=== PATIENT | male | born 1995 | race Two or more races ===

== ENCOUNTER 2017-08-18 00:20 | Emergency (ER) | payer SELFPAY ==
[2017-08-18] MEDS: Sodium Chloride 0.9% 1,000 ML IV ONE (00:45)
[2017-08-18] MEDS: Ondansetron 4 MG/2 ML SDV IVPUSH ONE (00:45)
[2017-08-18 01:13] VITALS: BP 146/96
--- NOTE | 2017-08-18 01:16 | EDM.PDOC ---
ED HPI GENERAL MEDICAL PROBLEM - General Chief Complaint: Abdominal Pain Stated Complaint: abd pain Time Seen by Provider: 08/18/17 01:06 Source of Information: Reports: Patient History Limitations: Reports: No Limitations - History of Present Illness INITIAL COMMENTS - FREE TEXT/NARRATIVE: 22 YO HM presents to ER complaining epigastric abdominal pain which radiates to left upper quadrant which began approximately 2 hours ago. Pt reports he was "chugging" beer and vodka when the pain began. Pt reports he felt nauseated and almost vomited after initial symptoms began. Pt reports pain is a pressure without radiation to back or chest. Pt reports consuming a large amount of alcohol last night. Pt denies any previous episodes of this pain. Pt denies taking any medication at this time. Pt reports pain is still present but has improved since coming to ER. Pt denies any fever/chills or chest pain. Onset: Today, Sudden Onset Date: 08/17/17 Onset Time: 23:00 Duration: Improving Location: Reports: Abdomen. Denies: Neck, Chest, Back Quality: Reports: Pressure Severity: Moderate Improves with: Reports: None Worsens with: Reports: Other (alcohol consumption) Associated Symptoms: Reports: Nausea/Vomiting. Denies: Chest Pain, Fever/Chills , Shortness of Breath Left Upper Abdomen Pain Score (Numeric/FACES): 4 - Related Data Allergies Allergy/AdvReac Type Severity Reaction Status Date / Time No Known Drug Allergies Allergy none Verified 08/18/17 01:13 Home Meds: Home Meds Famotidine [Pepcid] 20 mg PO BID #30 tab 08/18/17 [Rx] Ondansetron [Zofran ODT] 4 mg PO Q6H PRN #10 tab.dis 08/18/17 [Rx] ED ROS GENERAL - Review of Systems Review Of Systems: See Below Constitutional: Reports: No Symptoms HEENT: Reports: No Symptoms Respiratory: Reports: No Symptoms Cardiovascular: Reports: No Symptoms Endocrine: Reports: No Symptoms GI/Abdominal: Reports: Abdominal Pain, Nausea. Denies: Black Stool, Bloody Stool, Hematemesis, Hematochezia, Vomiting : Reports: No Symptoms. Denies: Flank Pain Musculoskeletal: Reports: No Symptoms Skin: Reports: No Symptoms Neurological: Reports: No Symptoms Psychiatric: Reports: No Symptoms Hematologic/Lymphatic: Reports: No Symptoms Immunologic: Reports: No Symptoms ED EXAM, GI/ABD - Physical Exam Exam: See Below Exam Limited By: No Limitations General Appearance: Alert, WD/WN, No Apparent Distress Throat/Mouth: Normal Inspection, Normal Lips, Normal Teeth, Normal Gums, Normal Oropharynx, Normal Voice, No Airway Compromise Head: Atraumatic, Normocephalic Neck: Normal Inspection, Supple, Non-Tender, Full Range of Motion Respiratory/Chest: No Respiratory Distress, Lungs Clear, Normal Breath Sounds, No Accessory Muscle Use, Chest Non-Tender Cardiovascular: Normal Peripheral Pulses, Regular Rate, Rhythm, No Edema, No Gallop, No JVD, No Murmur, No Rub GI/Abdominal Exam: Normal Bowel Sounds, Soft, No Organomegaly, No Distention, No Abnormal Bruit, No Mass, Pelvis Stable, Tender (epigastric). No: Distended, Guarding, Rigid, Rebound Back Exam: Normal Inspection, Full Range of Motion, NT Extremities: Normal Inspection, Normal Range of Motion, Non-Tender, Normal Capillary Refill, No Pedal Edema Neurological: Alert, Oriented, CN II-XII Intact, Normal Cognition, Normal Gait, Normal Reflexes, No Motor/Sensory Deficits Psychiatric: Normal Affect, Normal Mood Skin Exam: Warm, Dry, Intact, Normal Color, No Rash Lymphatic: No Adenopathy Course - Vital Signs Last Recorded V/S: Last Vital Signs Temp 36.7 C 08/18/17 01:08 Pulse 113 H 08/18/17 01:08 Resp 16 08/18/17 01:08 BP 146/96 H 08/18/17 01:08 Pulse Ox 98 08/18/17 01:08 - Orders/Labs/Meds Orders: Active Orders 24 hr Category Date Time Status UA W/MICROSCOPIC [URIN] Stat Lab 08/18/17 00:37 Ordered Labs: Laboratory Tests 08/18/17 08/18/17 08/18/17 Range/Units 00:45 00:45 00:45 WBC 10.1 H (5.0-10.0) 10^3/uL RBC 5.08 (4.50-6.00) 10^6/uL Hgb 16.3 (13.0-17.0) g/dL Hct 49.0 (40.0-52.0) % MCV 96.5 H (82.0-92.0) fL MCH 32.0 H (27.0-31.0) pg MCHC 33.2 (32.0-36.0) g/dL RDW 13.7 (11.5-14.5) % Plt Count 250 (150-300) 10^3/uL MPV 8.9 (7.4-10.4) fL Neut % (Auto) 68.1 (50.0-70.0) % Lymph % (Auto) 23.5 (20.0-40.0) % Dunn % (Auto) 7.0 (2.0-8.0) % Eos % (Auto) 0.6 L (1.0-3.0) % Baso % (Auto) 0.8 (0.0-1.0) % Neut # (Auto) 6.8 (2.5-7.0) 10^3/uL Lymph # (Auto) 2.4 (1.0-4.0) 10^3/uL Dunn # (Auto) 0.7 (0.1-0.8) 10^3/uL Eos # (Auto) 0.1 (0.1-0.3) 10^3/uL Baso # (Auto) 0.1 (0.0-0.1) 10^3/uL Sodium 141 (136-145) mmol/L Potassium 3.5 (3.3-5.3) mmol/L Chloride 102 (98-115) mmol/L Carbon Dioxide 24.2 (21.0-32.0) mmol/L BUN 15 (6-25) mg/dL Creatinine 0.75 (0.51-1.17) mg/dL Est Cr Clr Drug Dosing 181.52 mL/min Estimated GFR (MDRD) > 60 mL/min Glucose 107 (70-110) mg/dL Calcium 9.3 (8.7-10.3) mg/dL Total Bilirubin 0.6 (0.2-1.0) mg/dL AST 23 (15-37) U/L ALT 33 (12-78) U/L Alkaline Phosphatase 71 (46-116) IU/L Total Protein 8.0 (6.4-8.2) g/dL Albumin 4.34 (3.00-4.80) g/dL Lipase 71 L (73-393) U/L Meds: Medications Discontinued Medications Generic Name Dose Route Start Last Admin Trade Name Freq PRN Reason Stop Dose Admin Sodium Chloride 1,000 mls @ 999 mls/hr 08/18/17 00:36 08/18/17 00:45 Normal Saline IV 08/18/17 01:36 999 mls/hr .BOLUS ONE Administration Ondansetron HCl 4 mg 08/18/17 00:37 08/18/17 00:45 Zofran IVPUSH 08/18/17 00:38 4 mg ONETIME ONE Administration Departure - Departure Time of Disposition: 01:49 Disposition: Home, Self-Care 01 Condition: Good Clinical Impression: Abdominal pain Qualifiers: Abdominal location: epigastric Qualified Code(s): R10.13 - Epigastric pain Gastritis Qualifiers: Gastritis type: alcoholic Chronicity: acute Gastritis bleeding: without bleeding Qualified Code(s): K29.20 - Alcoholic gastritis without bleeding - Discharge Information Prescriptions: Famotidine [Pepcid] 20 mg PO BID #30 tab Ondansetron [Zofran ODT] 4 mg PO Q6H PRN #10 tab.dis PRN Reason: Nausea Instructions: Abdominal Pain, Adult, [id number], Gastritis, Adult, Easy-to- Read Forms: ED Department Discharge - My Orders Last 24 Hours: My Active Orders 08/18/17 00:37 UA W/MICROSCOPIC [URIN] Stat - Assessment/Plan Last 24 Hours: My Active Orders 08/18/17 00:37 UA W/MICROSCOPIC [URIN] Stat Assessment:: 1. abdominal pain- possibly gastritis vs early pancreatitis Plan: 1. abdominal pain- possibly gastritis vs early pancreatitis 2. discharge home 3. clear liquid diet 4. pepcid 20mg PO BID 5. zofran 4mg SL Q6 PRN 6. no alcohol 7. follow up with PCP for further evaluation and treatment 8. return to ER for worsening symptoms
[2017-08-18 01:41] LABS: CHLORIDE,CL 102 mmol/L (98-115); SODIUM,NA 141 mmol/L (136-145)
[2017-08-18] MEDS: Famotidine 20 MG Tab PO ONE (01:56)
== END 2017-08-18 02:00 | disposition home or self-care (01) ==
LOC: KA.ED 00:20
DX: K29.20 Alcoholic gastritis without bleeding (principal)
CPT/HCPCS: 80053; 81001; 83690; 85025; 96361; 96374; 96375; 99284; A9270-GY; J2405; J7030

== ENCOUNTER 2017-12-13 08:49 | Emergency (ER) | payer OTHER ==
--- NOTE | 2017-12-13 10:38 | EDM.PDOC ---
ED HPI GENERAL MEDICAL PROBLEM - General Chief Complaint: Upper Extremity Injury/Pain Stated Complaint: RIGHT MIDDLE FINGER INJURY Time Seen by Provider: 12/13/17 09:38 Source of Information: Reports: Patient History Limitations: Reports: No Limitations - History of Present Illness INITIAL COMMENTS - FREE TEXT/NARRATIVE: Patient presents with injury to right long finger that occurred at work when he caught it between a roller and chain. He says it pulled his finger in part way then slipped and let his finger out but pulled the tip loose from the finger nail. He denies any other injuries or medical problems. - Related Data Allergies Allergy/AdvReac Type Severity Reaction Status Date / Time No Known Drug Allergies Allergy none Verified 12/13/17 09:30 Home Meds: Home Meds . [No Known Home Meds] 12/13/17 [History] Past Medical History - Past Health History Medical/Surgical History: Denies Medical/Surgical History Gastrointestinal History: Reports: GERD Psychiatric History: Reports: ADD - Infectious Disease History Infectious Disease History: Reports: Chicken Pox - Past Surgical History Musculoskeletal Surgical History: Reports: Other (See Below) Other Musculoskeletal Surgeries/Procedures:: joint aches Social & Family History - Tobacco Use Smoking Status *Q: Current Every Day Smoker Years of Tobacco use: 5 Packs/Tins Daily: 1 - Caffeine Use Caffeine Use: Reports: Coffee, Energy Drinks, Soda, Tea Other Caffeine Use: regular - Recreational Drug Use Recreational Drug Use: Yes Recreational Drug Type: Reports: Marijuana/Hashish Recreational Drug Use Frequency: Weekly Review of Systems - Review of Systems Review Of Systems: See Below Constitutional: Reports: No Symptoms. Denies: Fever Eyes: Reports: No Symptoms Ears: Reports: No Symptoms Nose: Reports: No Symptoms Mouth/Throat: Reports: No Symptoms Respiratory: Reports: No Symptoms Cardiovascular: Reports: No Symptoms. Denies: Lightheadedness, Palpitations GI/Abdominal: Reports: No Symptoms Genitourinary: Reports: No Symptoms Musculoskeletal: Reports: Hand Pain. Denies: Neck Pain, Shoulder Pain, Arm Pain , Back Pain, Leg Pain Skin: Reports: Wound. Denies: Cyanosis, Jaundice, Mottled, Pallor, Diaphoresis Neurological: Reports: No Symptoms. Denies: Confusion, Dizziness, Headache, Seizure, Syncope, Difficulty Walking, Weakness Psychiatric: Reports: No Symptoms. Denies: Confusion ED EXAM, GENERAL - Physical Exam Exam: See Below Exam Limited By: No Limitations General Appearance: Alert, WD/WN, No Apparent Distress Eye Exam: Bilateral Eye: EOMI, Normal Inspection, PERRL Ears: Normal External Exam, Hearing Grossly Normal Nose: Normal Inspection, No Blood Throat/Mouth: Normal Inspection, Normal Lips, Normal Voice, No Airway Compromise Head: Atraumatic, Normocephalic Neck: Normal Inspection, Full Range of Motion Respiratory/Chest: No Respiratory Distress, Lungs Clear, Normal Breath Sounds, No Accessory Muscle Use Cardiovascular: Regular Rate, Rhythm, No Edema, No Gallop, No Murmur Back Exam: Full Range of Motion Extremities: Other (Exam of right long finger reveals full pain-free ROM of IP joints as well as remainder of hand. The distal tip of right long finger has no visible lacerations but appears to have torn loose from either the nail or nailbed. This is quite stable now and too painful to pull down to confirm depth of damage. The tip has full sensation and circulation and without tear or laceration extending laterally on either side of distal nail.) Neurological: Alert, Oriented, Normal Cognition, No Motor/Sensory Deficits Psychiatric: Normal Affect, Normal Mood Skin Exam: Warm, Dry, Normal Color, No Rash Course - Vital Signs Last Recorded V/S: Last Vital Signs Temp 96.3 F 12/13/17 10:27 Pulse 72 12/13/17 10:27 Resp 20 12/13/17 10:27 BP 122/80 12/13/17 10:27 Pulse Ox 98 12/13/17 10:27 - Orders/Labs/Meds Orders: Active Orders 24 hr Category Date Time Status Fingers Third Digit Rt F7 [CR] Stat Exams 12/13/17 09:38 Taken - Re-Assessments/Exams Free Text/Narrative Re-Assessment/Exam: 12/13/17 11:26 Xrays show no evidence of fracture or bony pathology. The finger is soaked for 20 minutes in Hibiclens solution. After examination revealing a fairly stable finger tip injury I discussed options with patient including using a Stax splint to support the finger for healing or suturing the tip in place through the nail to achieve the best support for healing. Patient prefers to use the Stax splint which I feel is reasonable for this injury. He will take Keflex tid for a week and follow up with PCP if any problems. I gave him a work note for limited use of right hand as tolerated to prevent catching tip of finger on anything. He will wear the splint for 10 days. Patient discharged to home in stable condition. Departure - Departure Time of Disposition: 10:32 Disposition: Home, Self-Care 01 Condition: Good Clinical Impression: Injury of tip of finger of right hand Qualifiers: Encounter type: initial encounter Qualified Code(s): S69.91XA - Unspecified injury of right wrist, hand and finger(s), initial encounter - Discharge Information Referrals: PCP,Not In Area [Primary Care Provider] - Additional Instructions: 1. Take the antibiotic three times a day as directed. 2. Wear the Stax finger splint day and night for 10 days; it may be removed for cleaning and washing your hands. 3. You can use Ibuprofen 600mg or Tylenol 650 mg every 6-8 hours as needed for pain. 4. Follow up with a clinic medical provider if any sign of infection as discussed or return to ER if needed. - My Orders Last 24 Hours: My Active Orders 12/13/17 09:38 Fingers Third Digit Rt F7 [CR] Stat - Assessment/Plan Last 24 Hours: My Active Orders 12/13/17 09:38 Fingers Third Digit Rt F7 [CR] Stat
== END 2017-12-13 10:50 | disposition home or self-care (01) ==
LOC: KA.ED 08:49
DX: S69.91XA Unspecified injury of right wrist, hand and finger(s), initial encounter (principal); W23.0XXA Caught, crushed, jammed, or pinched between moving objects, initial encounter; Y99.0 Civilian activity done for income or pay; F17.210 Nicotine dependence, cigarettes, uncomplicated
CPT/HCPCS: 73140-F7; 99283